=== PATIENT | female | born 1990 | race Caucasian/White ===

== ENCOUNTER 2017-02-08 18:01 | Emergency (ER) | payer OTHER ==
[~2017-02-08] VITALS: Ht 167.6 cm; Wt 98.2 kg
[2017-02-08] MEDS ORDERED: prenatal vitamin PO (18:14)
[2017-02-08 21:05] LABS: BASO # 0.1 K/mm3 (0.0-0.2); BASO % 0.6 % (0.0-1.0); EOS # 0.2 K/mm3 (0.0-0.50); EOS % 1.2 % (0.0-3.0); LARGE UNSTAINED CELL # 0.1 K/mm3 (0.0-0.4); LARGE UNSTAINED CELL % 0.8 % (0.0-4.0); LYMPH # 2.8 K/mm3 (1.5-6.5); LYMPH % 20.4 % (24.0-44.0); MONO # 0.4 K/mm3 (0.0-0.8); NEUTROPHILS # 9.7 K/mm3 (1.8-7.7); PLATELET COUNT, AUTOMATED 249 k/mm3 (150-450); WHITE BLOOD COUNT 13.1 K/mm3 (4.0-10.0)
[2017-02-08 21:18] LABS: MEAN CORPUSCULAR HGB CONC 35.3 g/dl (32.0-36.5); MEAN CORPUSCULAR VOLUME 87.7 fl (80.0-96.0); RED CELL DISTRIBUTION WIDTH 12.3 % (11.5-14.5)
--- NOTE | 2017-02-08 22:30 | REPUSA ---
Clinical history: vvaginal spotting. Findings: Real-time transabdominal ultrasound images of the pelvis were obtained. There is a single l jose intrauterine . The crown rump length measures 2.5 cm. heart rate measures 175 bpm . An anteverted uterus is noted. The uterus demonstrates normal echotexture and echogenicity. There i s no evidence of a subchorionic hemorrhage. The adnexa appear unremarkable. There is no evidence of free fluid. Impression: Single, live intrauterine measuring 9 weeks 2 days, with estimated due date of 09/11/2017.
[2017-02-08 22:43] VITALS: BP 149/85
== END 2017-02-08 22:51 | disposition home or self-care (01) ==
LOC: M ED 19:27
DX: O26.891 Other specified pregnancy related conditions, first trimester (principal); Z87.891 Personal history of nicotine dependence; Z3A.09 9 weeks gestation of pregnancy; Z79.899 Other long term (current) drug therapy

== ENCOUNTER 2017-04-03 18:31 | Emergency (ER) | payer OTHER ==
[~2017-04-03] VITALS: Ht 167.6 cm; Wt 94.3 kg
[2017-04-03 18:31] VITALS: BP 148/70
[~2017-04-03 18:31] MED LIST: prenatal vitamin PO
[2017-04-03] MEDS ORDERED: [UNRECOGNIZED DRUG - OTHER] PO (18:41)
[2017-04-03] MEDS ORDERED: AMOXICILLIN 500 MG CAP PO ONE (20:30)
[2017-04-03] MEDS ORDERED: ACETAMINOPH W/CODEINE #3 TAB UD PO ONE (20:30)
[2017-04-03] MEDS ORDERED: AMOX500C PO (20:36)
[2017-04-03] MEDS ORDERED: ACET30TAB PO (20:36)
[2017-04-03] MEDS ORDERED: ORAB20GE TOP (20:36)
== END 2017-04-03 20:46 | disposition home or self-care (01) ==
LOC: M ED 18:31
DX: O99.612 Diseases of the digestive system complicating pregnancy, second trimester (principal); O99.210 Obesity complicating pregnancy, unspecified trimester; Z3A.17 17 weeks gestation of pregnancy; Z79.899 Other long term (current) drug therapy

== ENCOUNTER → 2019-04-19 | Outpatient (CLI) | payer OTHER ==
[~2019-04-19] MED LIST changes: +ACET-716 PO; +AMOX500C PO; +ORAB20GE TOP; +[UNRECOGNIZED DRUG - OTHER] PO
[2019-04-19 13:50] LABS: FREE T4 0.97 NG/DL (0.76-1.46); THYROID STIMULATING HORMONE 0.915 uIU/ML (0.358-3.740)
[2019-04-21 10:55] LABS: ESTRADIOL 46.2 PG/ML; LUTEINIZING HORMONE 2.6 mIU/mL; PROLACTIN 8.8 NG/ML
[2019-04-21 10:56] LABS: FOLLICLE STIMULATING HORMONE 7.4 mIU/mL
[2019-04-23 14:31] LABS: 17 HYDROXY PROGESTERONE 41 ng/dL (.); DEHYDROEPIANDROSTERONE SULFATE 230.6 ug/dL (84.8-378.0); TESTOSTERONE FREE (DIRECT) 3.8 pg/mL (0.0-4.2)
== END ==
LOC: M LAB 12:30
PROVIDERS: ATTEND Obstetrics & Gynecology
DX: N92.6 Irregular menstruation, unspecified (principal)

== ENCOUNTER → 2019-05-12 | Outpatient (CLI) | payer OTHER | LOC: M LAB 17:18 | PROVIDERS: ATTEND Obstetrics & Gynecology | DX: N92.6 Irregular menstruation, unspecified (principal) ==

== ENCOUNTER → 2019-05-17 | Outpatient (CLI) | payer OTHER ==
--- NOTE | 2019-05-17 12:41 | REPVR ---
PROCEDURE INFORMATION: Exam: MR Head Without Contrast Exam date and time: 05/17/2019 10:54 AM Clinical history: 29 years old, female; Pain; Headache; Migraine; Without aura; Does not respond to medication; Without migrainosus; Additional info: Mirgraine, headaches TECHNIQUE: Imaging protocol: MR of the head without contrast. COMPARISON: No relevant prior studies available. FINDINGS: Brain: No evidence of acute cortical infarct. No evidence of restricted diffusion. No abnormal magnetic susceptibility signal changes. No intracranial hemorrhage. Minimal nonspecific Flair/T2 hyperintensities within the cerebral white matter.This has a broad differential diagnosis including migrainous angiopathy, premature small vessel ischemic change or demyelinating disease. Please correlate clinically. No basal ganglion, thalami, midbrain, brainstem or cerebellar mass. No Chiari malformation. No CP angle mass. Ventricles: The ventricular system is midline and appropriate in size. No hydrocephalus. Bones/joints: No suspicious marrow replacing lesions. Soft tissues: Unremarkable. Sinuses: The demonstrated paranasal sinuses are free of air-fluid level or suspicious mass. Mastoid air cells: Mastoids are free of acute inflammatory change. Orbits: No suspicious orbital mass. Vasculature: Normal vascular flow voids are present. IMPRESSION: No evidence of acute ischemia, hemorrhage or mass effect. Minimal nonspecific Flair/T2 hyperintensities within the cerebral white matter.This has a broad differential diagnosis including migrainous angiopathy, premature small vessel ischemic change or demyelinating disease. Please correlate clinically. Electronically signed by: Juan J Brothers On 05/17/2019 12:41:43 PM
== END ==
LOC: M RAD 10:07
PROVIDERS: ATTEND Family Medicine
DX: G43.909 Migraine, unspecified, not intractable, without status migrainosus (principal)

== ENCOUNTER → 2019-05-30 | Outpatient (CLI) | payer OTHER ==
--- NOTE | 2019-05-30 17:30 | REP ---
PELVIC ULTRASOUND: Real-time sonographic evaluation of the pelvis is performed. Transabdominal and endovaginal technique is utilized. Bladder measures 8.4 x 8.7 x 7.3 cm. Uterus measures 7.9 x 4.1 x 4.7 cm. Endometrial thickness is 6 mm. There is trace fluid in the cervical canal. No endometrial fluid is seen. Right ovary measures 2.8 x 2.3 x 2.1 cm and left ovary 2.2 x 1.7 x 2.0 cm. There is no torsion. There is no adnexal mass. There is no free fluid. IMPRESSION: Trace fluid in the cervical canal, otherwise negative pelvic ultrasound. Electronically Signed by Tomy Lyons MD 06/02/2019 05:01 P
== END ==
LOC: M RAD 09:13
PROVIDERS: ATTEND Obstetrics & Gynecology
DX: N92.6 Irregular menstruation, unspecified (principal)

== ENCOUNTER → 2019-06-21 | Outpatient (REF) | payer OTHER | LOC: M SFHCLERA 12:20 | PROVIDERS: ATTEND Nurse Practitioner Family | DX: J02.9 Acute pharyngitis, unspecified (principal) ==

== ENCOUNTER → 2021-04-07 | Outpatient (REF) | payer OTHER | LOC: M SFHCLERA 15:46 | PROVIDERS: ATTEND Nurse Practitioner Family | DX: J06.9 Acute upper respiratory infection, unspecified (principal) ==

== ENCOUNTER → 2021-09-21 | Outpatient (REF) | payer OTHER | LOC: M SFHCLERA 16:01 | PROVIDERS: ATTEND Student in an Organized Health Care Education/Training Program | DX: J06.9 Acute upper respiratory infection, unspecified (principal) ==

== ENCOUNTER → 2024-08-30 | Outpatient (CLI) | payer OTHER ==
[2024-08-30 14:53] LABS: HEMATOCRIT 39.6 % (36.0-47.0); HEMOGLOBIN 13.6 g/dl (12.0-15.5); MEAN CORPUSCULAR HEMOGLOBIN 30.2 pg (27.0-33.0); MEAN CORPUSCULAR HGB CONC 34.3 g/dl (32.0-36.5); MEAN CORPUSCULAR VOLUME 87.8 fl (80.0-96.0); PLATELET COUNT, AUTOMATED 145 10^3/uL (150-450); RED BLOOD COUNT 4.51 10^6/uL (4.00-5.40); WHITE BLOOD COUNT 9.7 10^3/uL (4.0-10.0)
[2024-08-30 15:25] LABS: ALBUMIN 4.1 G/DL (3.2-5.2); ALKALINE PHOSPHATASE 67 U/L (35-104); ALT/SGPT 22 U/L (7.0-40); AST/SGOT 12 U/L (<34); BILIRUBIN,TOTAL 0.6 MG/DL (0.3-1.2); BLOOD UREA NITROGEN 9 MG/DL (9-23); CALCIUM LEVEL 9.4 MG/DL (8.5-10.1); CARBON DIOXIDE LEVEL 26 MMOL/L (20-31); CHLORIDE LEVEL 106 MMOL/L (98-107); CHOLESTEROL LEVEL 172 MG/DL (<200); CHOLESTEROL RISK RATIO 4.64 (<5); CREATININE FOR GFR 0.89 MG/DL (0.55-1.30); GLOMERULAR FILTRATION RATE > 60.0 (>60); GLUCOSE, FASTING 89 MG/DL (60-100); LDL CHOLESTEROL 110.6 MG/DL (<100); POTASSIUM SERUM 4.1 MMOL/L (3.5-5.1); SODIUM LEVEL 138 MMOL/L (136-145); TOTAL PROTEIN 6.7 G/DL (5.7-8.2); TRIGLYCERIDES LEVEL 122 MG/DL (<150)
[2024-08-30 15:26] LABS: FREE T4 1.17 NG/DL (0.89-1.76); THYROID STIMULATING HORMONE 0.852 uIU/ML (0.55-4.78)
[2024-08-30 15:27] LABS: TOTAL 25(OH) VITAMIN D 19.6 NG/ML (20.0-100.0); VITAMIN B12 LEVEL 505 PG/ML (211-911)
[2024-08-30 15:29] LABS: FOLATE 11.34 NG/ML (>5.4)
[2024-08-30 15:35] LABS: ATYPICAL LYMPH 8 % (0-5); LYMPHOCYTES 27 % (16-44); MONOCYTES 2 % (0-5); NEUTROPHILS 63 % (28-66)
[2024-08-30 15:36] LABS: PLATELET ESTIMATE NORMAL (NORMAL)
[2024-08-30 15:57] LABS: HEMOGLOBIN A1c 5.1 % (4.0-6.0)
== END ==
LOC: M LAB 13:41
PROVIDERS: ATTEND Family Medicine
DX: Z00.00 Encounter for general adult medical examination without abnormal findings (principal)

== ENCOUNTER → 2024-12-18 | Outpatient (CLI) | payer OTHER | LOC: M RAD 13:20 | PROVIDERS: ATTEND Family Medicine | DX: N94.6 Dysmenorrhea, unspecified (principal); N88.8 Other specified noninflammatory disorders of cervix uteri ==

== ENCOUNTER → 2025-07-14 | Outpatient (REF) | payer OTHER ==
[2025-07-16 16:03] LABS: HPV APTIMA Not Detected (Not Detected)
== END ==
LOC: M SFHCWAGY 17:34
PROVIDERS: ATTEND Obstetrics & Gynecology
DX: Z12.4 Encounter for screening for malignant neoplasm of cervix (principal); R87.615 Unsatisfactory cytologic smear of cervix